=== PATIENT | male | born 1995 | race Caucasian/White ===

== ENCOUNTER 2017-01-01 23:26 | Emergency (ER) | payer SELFPAY ==
--- NOTE | ~2017-01-01 | ER ---
PATIENT'S NAME: SURENDRA DEY [facility] AGE: 21 Y [address] ROOM: [place] [id number] LOCATION: [facility] ADMIT DATE: 01/01/2017 ER/Outpatient Report DISCHARGE DATE: 01/02/2017 FAMILY PHYSICIAN: PHYSICIAN, NO ATTENDING PHYSICIAN: uYry Calvin Admission date and time documented in the medical record. I saw the patient at 2342 hours. CHIEF COMPLAINT: Pain low back, shortness of breath. HISTORY OF PRESENT ILLNESS: This patient is a 21-year-old male who was lying in bed 30 minutes prior to coming into the emergency room and he had acute onset of severe sharp pain in the lower back. He started to have some tingling in his extremities and shortness of breath. Brought to the emergency room by private vehicle for evaluation. The patient is hyperventilating on arrival with respiratory rate of 32. He has some peripheral numbness and tingling in his extremities, short of breath, low back pain. No bowel or bladder dysfunction. He has no history of low back injury. At work, he does a lot of lifting, pushing and pulling. Yesterday, he was driving a forklift all day. No recent coughs, colds, flus, fever, chills, or sweats. No fall or trauma. Little bit lightheaded and dizzy with hyperventilation. No syncope. No headache, eyes, ears, nose, throat pain. No neck pain or upper back pain just the lower back pain. No incontinence. No other joint muscle swelling, redness, or pain. No skin eruptions or rash. No neuro changes, psych issues or endocrine problems. HOME MEDICATIONS: None. ALLERGIES: NONE. SOCIAL HISTORY: Chews tobacco. Nonsmoker. Nondrinker. SIGNIFICANT PAST MEDICAL HISTORY: Tobacco abuse, otherwise negative. OPERATIONS: 1. Tonsillectomy. 2. Adenoidectomy. REVIEW OF SYSTEMS: PATIENT'S NAME: SURENDRA DEY [facility] AGE: 21 Y [address] ROOM: [place] [id number] LOCATION: [facility] ADMIT DATE: 01/01/2017 ER/Outpatient Report DISCHARGE DATE: 01/02/2017 FAMILY PHYSICIAN: PHYSICIAN, NO ATTENDING PHYSICIAN: Yury Calvin All systems reviewed by me are negative with the exception of those discussed in the history of present illness. PHYSICAL EXAMINATION: VITAL SIGNS: Temperature 98.7 tympanic, pulse 80, respirations 32, blood pressure 167/72, O2 saturation on room air is 98%. HEAD: Normocephalic. EYES, EARS, NOSE, THROAT: Clear. Mucous membranes moist. NECK: Negative. No thyromegaly or cervical adenopathy. No tenderness to palpation. Full range of motion. LUNGS: Clear. HEART: Regular. ABDOMEN: Obese, soft, nondistended, nontender. Good bowel tones. BACK: The patient has tenderness in the lower back to palpation. Range of motion is restricted. EXTREMITIES: Intact. Neurovascularly intact. SKIN: Clear. IMPRESSION: 1. Low back pain, musculoskeletal. 2. Hyperventilation. PLAN: The patient was given 10 mg of Valium IM in the emergency room, Dilaudid 1 mg IM in the emergency room, Phenergan 25 mg IM in the emergency room. Had much improvement in his discomfort. Dismissed home. Observation. Activity as tolerated. Heating pad to sore areas intermittently as needed. Flexeril 10 mg 3 times a day #30 and [place] 7.5/325 as need for pain #16. No work until Friday the 01/06/2017. Follow up with personal physician as needed. Discussion ensued with the patient concerning my findings and recommendations, he understands. MD TE RANDHAWA/nadjal /[id number] d: 01/02/17 0320 t: 01/08/17 0613, OUTPATIENT REPORT
== END 2017-01-02 01:55 | disposition disaster alternative care site (69) ==
LOC: GMED 23:26
DX: M54.5 Low back pain (principal); R06.4 Hyperventilation; Z90.89 Acquired absence of other organs
CPT/HCPCS: J1170; J2550; J3360